=== PATIENT | male | born 1975 | race Caucasian/White ===

== ENCOUNTER 2017-04-02 02:22 | Emergency (ER) | payer SELFPAY ==
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
[2017-04-02] MEDS ORDERED: Sodium Chloride 0.9% 1,000 ML IV SCH (05:00)
[2017-04-02] MEDS ORDERED: HYDROmorphone 1 MG/ML Syringe IVPUSH ONE (05:16)
[2017-04-02] MEDS ORDERED: Ondansetron 4 MG/2 ML SDV IVPUSH ONE (05:16)
[2017-04-02] MEDS ORDERED: Diatrizoate Meglumine/Diatrizoate Sodium 37% 120 ML Bottle PO ONE (07:02)
[2017-04-02] MEDS ORDERED: Iopamidol 612 MG/ML 150 ML Bottle IVPUSH ONE (07:02)
--- NOTE | 2017-04-02 07:16 | CT ---
CT abdomen and pelvis Technique: Multiple axial sections were obtained from above the dome of the diaphragm inferiorly through the pubic symphysis. Intravenous and oral contrast was utilized. Delayed images were obtained through the bladder. Comparison: No previous CT exam. Previous right lower quadrant abdominal ultrasound performed earlier on same day. Findings: Visualized lung bases are clear. Liver shows no focal abnormality. Spleen appears within normal limits. Adrenal glands show no nodule. Kidneys show symmetric contrast enhancement without hydronephrosis or mass. Pancreas appears within normal limits. Aorta shows no aneurysmal dilatation. No retroperitoneal adenopathy or mesenteric abnormalities are seen. Appendix believed to be seen and appears within normal limits. No pelvic mass or adenopathy is seen. Small fat-containing right inguinal hernia is noted. No bowel is seen to extend into the hernia. No additional abdominal wall hernia is seen. Several loops of small bowel are mildly prominent in size most likely due to the effects of contrast which is incidental. Impression: 1. Small fat-containing right inguinal hernia. No bowel is seen within this hernia. 2. No additional abnormality is appreciated on CT study of the abdomen and pelvis. Diagnostic code #2
[2017-04-02 07:36] VITALS: BP 119/76
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
--- NOTE | 2017-04-02 09:08 | US ---
Limited abdominal ultrasound: Multiple real-time images of the right groin were obtained. Equivocal inguinal hernia is present. No cyst or solid abnormality is appreciated within the inguinal canal. Impression: 1. Equivocal findings for right inguinal hernia. Diagnostic code #3 Agree with preliminary report issued by [facility] ([facility] preliminary report dictated on 04/02/17, 5:45 AM Central Time)
== END 2017-04-02 08:25 | disposition home or self-care (01) ==
LOC: JD.ED 02:22
DX: K40.91 Unilateral inguinal hernia, without obstruction or gangrene, recurrent (principal); G57.80 Other specified mononeuropathies of unspecified lower limb; F17.210 Nicotine dependence, cigarettes, uncomplicated; Z88.0 Allergy status to penicillin
CPT/HCPCS: 36415; 74177; 76705; 80053; 81001; 85025; 96361; 96374; 96375; 99284; J1170; J2405; J7040; Q9963; Q9967